=== PATIENT | male | born 1985 | race American Indian/Alaskan Native ===

== ENCOUNTER 2017-05-04 10:34 | Emergency (ER) | payer OTHER ==
[2017-05-04 12:11] VITALS: BP 145/80
--- NOTE | 2017-05-04 16:20 | Emergency Department Report ---
Minor Respiratory - HPI Chief Complaint: Dizziness Stated Complaint: LIGHT HEADED Time Seen by Provider: 05/04/17 15:55 Duration: 1 Day Pain Location: Throat, Nose, Ear Severity: mild Minor Respiratory: Yes Rhinorrhea, Yes Sore Throat, Yes Able to Tolerate Fluids , Yes Ear Pain, Yes Cough, Yes Sick Contacts, Yes Fever, No Hemoptysis, No Chest Pain, No Shortness of Breath ED Review of Systems ROS: Stated complaint: LIGHT HEADED Other details as noted in HPI Constitutional: denies: chills, fever Eyes: denies: eye pain, eye discharge, vision change ENT: ear pain, throat pain, congestion Respiratory: cough. denies: shortness of breath, wheezing Cardiovascular: denies: chest pain, palpitations, dyspnea on exertion, edema, syncope, paroxysmal nocturnal dyspnea Endocrine: no symptoms reported Gastrointestinal: denies: abdominal pain, nausea, diarrhea Genitourinary: denies: urgency, dysuria Musculoskeletal: denies: back pain, joint swelling, arthralgia Skin: denies: rash, lesions Neurological: vertigo. denies: headache, weakness, numbness, paresthesias, confusion, abnormal gait Psychiatric: denies: anxiety, depression Hematological/Lymphatic: denies: easy bleeding, easy bruising ED Past Medical Hx - Past Medical History Previous Medical History?: No - Surgical History Past Surgical History?: No - Social History Smoking Status: Current Every Day Smoker Substance Use Type: Alcohol, Non Opiate Pain - Medications Home Medications: Home Medications Medication Instructions Recorded Confirmed Last Taken Type Cephalexin [Keflex] 500 mg PO Q6H #20 capsule 08/19/14 Unknown Rx traMADol [Ultram 50 MG tab] 50 mg PO Q6HR PRN #12 tablet 08/19/14 Unknown Rx Guaifenesin/Pseudoephedrne HCl 1 each PO BID PRN #24 tab.er.12h 05/04/17 Unknown Rx [Mucinex D ER 1,200-120 mg Tab] Ibuprofen 800 mg PO TID PRN #30 tablet 05/04/17 Unknown Rx Minor Respiratory Exam - Exam General: Vital signs noted. No distress. Alert and acting appropriately. HEENT: Yes Pharyngeal Erythema, Yes Moist Mucous Membranes, Yes Rhinorrhea, Yes Maxillary Tenderness, No Pharyngeal Exudates, No Conjuctival Injection, No Frontal Tenderness Ear: Both TM Erythema, Neither TM Bulge, Neither EAC Pain, Neither EAC Discharge Neck: No Adenopathy, No Supple Lungs: Yes Good Air Exchange, Yes Cough, No Wheezes, No Ronchi, No Stridor, No Labored Respirations, No Retractions, No Use of Accessory Muscles, No Other Abnormal Lung Sounds Heart: Yes Regular, No Murmur Abdomen: Yes Normal Bowel Sounds, No Tenderness, No Peritoneal Signs Skin: No Rash, No Edema Neurologic: Alert and oriented, no deficits. Musculoskeletal: Unremarkable. ED Course Vital Signs 05/04/17 12:08 Temperature 98.3 F Pulse Rate 76 Respiratory 16 Rate Blood Pressure 145/80 O2 Sat by Pulse 97 Oximetry ED Medical Decision Making - EKG Data EKG shows normal: sinus rhythm (interpreted by ED attending ) Rate: normal - EKG Data When compared to previous EKG there are: previous EKG unavailable Interpretation: normal EKG - Medical Decision Making This is a 31-year-old -[place] male who presents with flulike symptoms 4 days patient states 5 family members at home with similar symptoms including cough congestion and ear pain sinus pressure rhinorrhea and nocturnal feve 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 as "I felt that chill come down over me" prompting patient to seek treatment today , patient denies lightheadedness no chest pain no shortness of breath no dizziness no headache at this time patient and is ambulatory and oriented 3 to baseline per patient exam ENT bilateral erythema no pain nose bogginess turbinate erythema clear postnasal drip bilateral maxillary sinus pain pharynx erythema no exudate no lesions uvula midline no stridor lungs clear no wheezing plan DC to home in stable condition treatment for URI patient advises that he does not want antibiotics as he does not think sinusitis is worse enough, plan: Mucinex D, ibuprofen, follow up with primary care in 2-3 days. pt verbalized agreement and understanding of same. Critical care attestation.: If time is entered above; I have spent that time in minutes in the direct care of this critically ill patient, excluding procedure time. ED Disposition Clinical Impression: URI, acute Sinusitis Qualifiers: Sinusitis location: maxillary Chronicity: unspecified Qualified Code(s): J32.0 - Chronic maxillary sinusitis Disposition: DC-01 TO HOME OR SELFCARE Is pt being admited?: No Does the pt Need Aspirin: No Condition: Good Instructions: Upper Respiratory Infection (ED), Sinusitis (ED), Viral Syndrome (ED) Prescriptions: Guaifenesin/Pseudoephedrne HCl [Mucinex D ER 1,200-120 mg Tab] 1 each PO BID PRN #24 tab.er.12h PRN Reason: cough congestion Ibuprofen 800 mg PO TID PRN #30 tablet PRN Reason: pain / fever Referrals: NAHUM SILVA MD, PHD [Staff Physician] - 3-5 Days Forms: Work/School Release Form(ED) Time of Disposition: 16:25
== END 2017-05-04 16:31 | disposition home or self-care (01) ==
LOC: ED 10:34
DX: J06.9 Acute upper respiratory infection, unspecified (principal); J32.0 Chronic maxillary sinusitis; F17.200 Nicotine dependence, unspecified, uncomplicated
CPT/HCPCS: 93005; 93010; 99282